=== PATIENT | male | born 1960 | race Caucasian/White ===

== ENCOUNTER 2024-07-31 08:51 | Emergency (ER) | payer MEDICARE, MEDICAID ==
[2024-07-31] MEDS: Norflurane/HFc 245FA Medium Stream Spray 103.5 ML Can ONE (10:15)
[2024-07-31 10:16] LABS: BASOPHILS ABSOLUTE AUTO 0.02 K/uL (0.00-0.20); BASOPHILS PERCENT AUTO 0.3 % (0.0-2.0); EOSINOPHILS ABSOLUTE AUTO 0.17 K/uL (0.00-0.50); HEMATOCRIT 32.7 % (39.0-49.0); IMMATURE GRAN ABSOLUTE AUTO 0.01 10^3/uL (0.00-0.04); IMMATURE GRAN PERCENT AUTO 0.2 % (0.0-0.4); LYMPHOCYTES ABSOLUTE AUTO 1.67 K/uL (0.50-3.50); MEAN CORPUSCULAR HEMOGLOBIN 28.5 pg (28.2-33.3); MEAN CORPUSCULAR HGB CONC 33.6 g/dL (31.7-36.0); MEAN CORPUSCULAR VOLUME 84.7 fL (84.0-98.0); MONOCYTES ABSOLUTE AUTO 0.53 K/uL (0.00-1.00); MONOCYTES PERCENT AUTO 9.2 % (2.0-14.0); NEUTROPHILS ABSOLUTE AUTO 3.36 K/uL (1.40-7.00); NEUTROPHILS PERCENT AUTO 58.3 % (45.0-80.0); PLATELET COUNT,PLT 248 K/uL (150-350); RED BLOOD CELL COUNT 3.86 M/uL (4.33-5.41); RED CELL DISTRIBUTION WIDTH 14.2 % (11.2-14.1); WHITE BLOOD CELL COUNT,WBC 5.8 K/uL (4.0-10.2)
[2024-07-31] MEDS: Norflurane/HFc 245FA Medium Stream Spray 103.5 ML Can TOP ONE (10:16)
[2024-07-31 10:32] LABS: INR 1.2 (0.9-1.1); PROTHROMBIN TIME 12.2 SEC (9.0-11.1)
[2024-07-31 10:47] LABS: ALANINE AMINOTRANSFERASE,ALT 17 U/L (12-78); ALBUMIN 2.8 g/dL (3.4-5.0); ALKALINE PHOSPHATASE 89 IU/L (46-116); ANION GAP 8.9 meq/L (7-15); ASPARTATE AMNIOTRANSFERASE,AST 11 U/L (15-37); BILIRUBIN TOTAL 0.6 mg/dL (0.2-1.0); BLOOD UREA NITROGEN,BUN 39 mg/dL (7-18); CALCIUM 9.1 mg/dL (8.5-10.1); CARBON DIOXIDE,CO2 24.1 mmol/L (21.0-32.0); CHLORIDE,CL 106 mmol/L (98-107); ESTIMATED GFR 31 mL/min (>=60); GLUCOSE RANDOM 140 mg/dL (70-99); SODIUM,NA 139 mmol/L (136-145)
[2024-07-31] MEDS: OLANZapine 5 MG Tab.DIS PO ONE (11:07)
[2024-07-31] MEDS: Aspirin 81 MG Tab.Chew PO ONE (11:07)
[2024-07-31 11:21] LABS: CREATINE KINASE,CK 72 U/L (26-308); PRO B-TYPE NATRIUR PEPT,BNPPRO 943 pg/mL (0-125)
[2024-07-31] MEDS: LORazepam 2 MG/ML SDV IVPUSH ONE (12:14)
[2024-07-31] MEDS: Heparin Sodium 5,000 Units/ML Vial IVPUSH ONE (12:19)
[2024-07-31] MEDS: Sodium Chloride 0.9% 10 ML Syringe FLUSH PRN (12:20)
[2024-07-31] MEDS: Heparin Sodium/0.45% NaCl 500 ML IV SCH (12:21)
[2024-07-31] MEDS: Lactated Ringers 1,000 ML IV SCH (12:37)
== END 2024-07-31 13:30 ==
LOC: SUPCPDRO 08:51 → LL.ED 08:51
DX: F03.A11 Unspecified dementia, mild, with agitation (principal); I21.4 Non-ST elevation (NSTEMI) myocardial infarction; N17.9 Acute kidney failure, unspecified; I48.91 Unspecified atrial fibrillation; I10 Essential (primary) hypertension; E11.9 Type 2 diabetes mellitus without complications; Z95.5 Presence of coronary angioplasty implant and graft; Z88.8 Allergy status to other drugs, medicaments and biological substances; Z91.013 Allergy to seafood; Z79.01 Long term (current) use of anticoagulants; Z79.899 Other long term (current) drug therapy; Z79.4 Long term (current) use of insulin
CPT/HCPCS: 36415; 71045; 80053; 82550; 83605; 83735; 83880; 84484; 85025; 85610; 93005; 93010; 96365; 96375; 96376; 99284; 99285-25; A9270-GY; J1644; J2060; J7120